=== PATIENT | female | born 1985 | race Two or more races ===

== ENCOUNTER 2016-10-21 14:24 | Emergency (ER) | payer OTHER ==
--- NOTE | 2016-10-21 14:29 | PDOC ---
Rapid Medical Evaluation Time Seen by Provider: 10/21/16 14:27 Medical Evaluation: Allergies Allergy/AdvReac Type Severity Reaction Status Date / Time No Known Drug Allergies Allergy Verified 11/02/15 18:35 10/21/16 14:27 31 year old female complaining of 2 days of headache, frontal and occipital, unrelieved by Tylenol. No history of migraines, no similar headaches. Denies fever, vomiting, difficulty walking. Had blurry vision last night. -UA, urine -Basic labs -To Main ED for further evaluation
[2016-10-21 14:31] VITALS: BMI 27.2
[2016-10-21 14:45] LABS: BASOPHIL 0.4 % (0-2.0); EOSINOPHIL 1.1 % (0-4.5); MCH 30.6 pg (25.7-33.7); MCHC 33.4 g/dl (32.0-36.0); MEAN CELL VOLUME 91.7 fl (80-96); MEAN PLT VOLUME 8.5 fl (7.5-11.1); NEUTROPHILS 71.2 % (42.8-82.8); PLATELET COUNT 295 K/MM3 (134-434); RDW 13.4 % (11.6-15.6); WHITE BLOOD COUNT 12.3 K/mm3 (4.0-10.0)
[2016-10-21 14:49] LABS: URINE APPEARANCE CLEAR; URINE BILIRUBIN NEGATIVE (NEGATIVE); URINE BLOOD NEGATIVE (NEGATIVE); URINE COLOR STRAW; URINE GLUCOSE (UA) NEGATIVE (NEGATIVE); URINE KETONE NEGATIVE (NEGATIVE); URINE LEUK ESTERASE NEGATIVE (NEGATIVE); URINE NITRITE NEGATIVE (NEGATIVE); URINE PROTEIN NEGATIVE (NEGATIVE); URINE UROBILINOGEN NEGATIVE E.U./dl (0.2-1.0)
[2016-10-21 15:11] LABS: ALBUMIN 3.1 g/dl (3.4-5.0); ALK PHOS 54 U/L (45-117); ANION GAP 11 (8-16); BILIRUBIN,TOTAL 0.2 mg/dL (0.2-1.0); CALCIUM 8.7 mg/dL (8.5-10.1); CO2 25 mmol/L (21-32); CREATININE 0.7 mg/dL (0.55-1.02); GLUCOSE,RANDOM 132 mg/dL (74-106); SGOT/AST 10 U/L (15-37); SGPT/ALT 16 U/L (12-78); TOT PROT 6.7 g/dl (6.4-8.2)
--- NOTE | 2016-10-21 15:39 | PDOC ---
History of Present Illness - General History Source: Patient Exam Limitations: No Limitations - History of Present Illness Initial Comments: 10/21/16 15:47 The patient is a 31 year old female who is currently 14 weeks , with no significant past medical history, who presents to the emergency department with a headache for the past 2 days. She describes her headache as moderate, without radiation. She notes that sound exacerbates her headache. She also notes that she has been taking Tylenol with little to no relief of her symptoms. The patient denies chest pain, shortness of breath and dizziness. Denies fever, chills, nausea, vomit, diarrhea and constipation. Denies dysuria, frequency, urgency and hematuria. LMP: 07/10/17 Allergies: None Past surgical history: None reported Social history: No alcohol, tobacco or drug use reported PMD - Dr. Harsha Tariq <Benedicto Hernandez - Last Filed: 10/21/16 15:45> <Killian Bedoya - Last Filed: 10/21/16 17:35> - General Chief Complaint: Headache Stated Complaint: Migraine Headache Time Seen by Provider: 10/21/16 14:27 Past History <Benedicto Hernandez - Last Filed: 10/21/16 15:45> - Past Medical History Anemia: No Asthma: No Cancer: No Cardiac Disorders: No CVA: No COPD: No CHF: No Dementia: No Diabetes: No GI Disorders: No Disorders: No HTN: No Hypercholesterolemia: No Liver Disease: No Seizures: No Thyroid Disease: No - Surgical History Abdominal Surgery: (tummy tuck) - Psycho/Social/Smoking Cessation Hx Anxiety: No Suicidal Ideation: No Smoking History: Never smoked Have you smoked in the past 12 months: No Information on smoking cessation initiated: No Hx Alcohol Use: No Drug/Substance Use Hx: No Substance Use Type: None Hx Substance Use Treatment: No <Killain Bedoya - Last Filed: 10/21/16 17:35> - Past Medical History Allergies/Adverse Reactions: Allergies Allergy/AdvReac Type Severity Reaction Status Date / Time No Known Drug Allergies Allergy Verified 10/21/16 14:28 Home Medications: Ambulatory Orders Acetaminophen [Tylenol .Regular Strength -] 650 mg PO Q4H PRN #0 tablet Review of Systems - Review of Systems Able to Perform ROS?: Yes Comments:: 10/21/16 15:46 GENERAL/CONSTITUTIONAL: No fever or chills. No weakness. HEAD, EYES, EARS, NOSE AND THROAT: No change in vision. No ear pain or discharge. No sore throat. CARDIOVASCULAR: No chest pain or shortness of breath RESPIRATORY: No cough, wheezing, or hemoptysis. GASTROINTESTINAL: No nausea, vomiting, diarrhea or constipation. GENITOURINARY: No dysuria, frequency, or change in urination. MUSCULOSKELETAL: No joint or muscle swelling or pain. No neck or back pain. SKIN: No rash NEUROLOGIC: +Headache. No vertigo, loss of consciousness, or change in strength/ sensation. ENDOCRINE: No increased thirst. No abnormal weight change HEMATOLOGIC/LYMPHATIC: No anemia, easy bleeding, or history of blood clots. ALLERGIC/IMMUNOLOGIC: No hives or skin allergy. <Benedicto Hernandez - Last Filed: 10/21/16 15:45> *Physical Exam - Vital Signs Last Vital Signs Temp Pulse Resp BP Pulse Ox 98.1 F 101 H 20 145/79 100 10/21/16 14:28 10/21/16 14:28 10/21/16 14:28 10/21/16 14:28 10/21/16 14:28 - Physical Exam Comments: 10/21/16 15:46 GENERAL: Awake, alert, and fully oriented, in no acute distress HEAD: No signs of trauma, normocephalic, atraumatic EYES: PERRLA, EOMI, sclera anicteric, conjunctiva clear ENT: Auricles normal inspection, hearing grossly normal, nares patent, oropharynx clear without exudates. Moist mucosa NECK: Normal ROM, supple, no lymphadenopathy, JVD, or masses LUNGS: No distress, speaks full sentences, clear to auscultation bilaterally HEART: Regular rate and rhythm, normal S1 and S2, no murmurs, rubs or gallops, peripheral pulses normal and equal bilaterally. ABDOMEN: Soft, nontender, normoactive bowel sounds. No guarding, no rebound. No masses EXTREMITIES: Normal inspection, Normal range of motion, no edema. No clubbing or cyanosis. NEUROLOGICAL: Cranial nerves II through XII grossly intact. Normal speech, normal gait, no focal sensorimotor deficits SKIN: Warm, Dry, normal turgor, no rashes or lesions noted. <Benedicto Hernandez - Last Filed: 10/21/16 15:45> - Vital Signs Last Vital Signs Temp Pulse Resp BP Pulse Ox 98.1 F 101 H 20 145/79 100 10/21/16 14:28 10/21/16 14:28 10/21/16 14:28 10/21/16 14:28 10/21/16 14:28 <Killian Bedoya - Last Filed: 10/21/16 17:35> ED Treatment Course - LABORATORY CBC & Chemistry Diagram: 10/21/16 14:40 10/21/16 14:40 - ADDITIONAL ORDERS Additional order review: Laboratory Results 10/21/16 10/21/16 14:40 14:40 Sodium 138 Potassium 3.8 Chloride 102 Carbon Dioxide 25 Anion Gap 11 BUN 6 L Creatinine 0.7 Creat Clearance w eGFR > 60 Random Glucose 132 H Calcium 8.7 Total Bilirubin 0.2 AST 10 L ALT 16 Alkaline Phosphatase 54 Total Protein 6.7 Albumin 3.1 L Urine Color Straw Urine Appearance Clear Urine pH 9.0 H D Ur Specific [place] 1.015 Urine Protein Negative Urine Glucose (UA) Negative Urine Ketones Negative Urine Blood Negative Urine Nitrite Negative Urine Bilirubin Negative Urine Urobilinogen Negative Ur Leukocyte Esterase Negative Urine HCG, Qual Positive 10/21/16 14:40 RBC 4.20 MCV 91.7 MCHC 33.4 RDW 13.4 MPV 8.5 D Neutrophils % 71.2 Lymphocytes % 22.3 Monocytes % 5.0 Eosinophils % 1.1 Basophils % 0.4 <Benedicto Hernandez - Last Filed: 10/21/16 15:45> - LABORATORY CBC & Chemistry Diagram: 10/21/16 14:40 10/21/16 14:40 - ADDITIONAL ORDERS Additional order review: Laboratory Results 10/21/16 10/21/16 14:40 14:40 Sodium 138 Potassium 3.8 Chloride 102 Carbon Dioxide 25 Anion Gap 11 BUN 6 L Creatinine 0.7 Creat Clearance w eGFR > 60 Random Glucose 132 H Calcium 8.7 Total Bilirubin 0.2 AST 10 L ALT 16 Alkaline Phosphatase 54 Total Protein 6.7 Albumin 3.1 L Urine Color Straw Urine Appearance Clear Urine pH 9.0 H D Ur Specific [place] 1.015 Urine Protein Negative Urine Glucose (UA) Negative Urine Ketones Negative Urine Blood Negative Urine Nitrite Negative Urine Bilirubin Negative Urine Urobilinogen Negative Ur Leukocyte Esterase Negative Urine HCG, Qual Positive 10/21/16 14:40 RBC 4.20 MCV 91.7 MCHC 33.4 RDW 13.4 MPV 8.5 D Neutrophils % 71.2 Lymphocytes % 22.3 Monocytes % 5.0 Eosinophils % 1.1 Basophils % 0.4 <Killian Bedoya - Last Filed: 10/21/16 17:35> *DC/Admit/Observation/Transfer - Attestations Scribe Attestion: 10/21/16 15:46 Documentation prepared by Benedicto Hernandez, acting as medical office technician for Killian Bedoya MD <Benedicto Hernandez - Last Filed: 10/21/16 15:45> - Attestations Physician Attestion: 10/21/16 15:40 I, Dr. Killian Bedoya, attest that this document has been prepared under my direction and personally reviewed by me in its entirety. I further attest, that it accurately reflects all work, treatment, procedures and medical decision -making performed by me. <Killian Bedoya - Last Filed: 10/21/16 17:35> Diagnosis at time of Disposition: Headache Qualifiers: Headache type: unspecified Headache chronicity pattern: acute headache - Discharge Dispostion Disposition: HOME Condition at time of disposition: Good - Referrals Referrals: Harsha Tariq [Primary Care Provider] - Byron Carpenter MD [Staff Physician] - - Patient Instructions Printed Discharge Instructions: DI for Headache Additional Instructions: Kevin- Please follow up with the neurologist. You need to see a specialist because there are very limited medicines you can have in . Use Tylenol for now. Best- Dr. Killian Bedoya
[2016-10-21] MEDS ORDERED: ONDANSETRON 4 MG/2 ML VIAL IVPUSH ONE (15:42)
[2016-10-21] MEDS ORDERED: morphine CARPU-JECT 4 MG/1 ML DISP.SYRIN IVPUSH ONE (15:42)
[2016-10-21] MEDS ORDERED: SODIUM CHLORIDE 1,000 ML IV STA (15:42)
[2016-10-21] MEDS ORDERED: METOCLOPRAMIDE HCL INJECTION 10 MG/2 ML VIAL IVPUSH ONE (15:42)
[2016-10-21] MEDS ORDERED: morphine CARPU-JECT 4 MG/1 ML DISP.SYRIN ONE (15:48)
[2016-10-21] MEDS ORDERED: ONDANSETRON 4 MG/2 ML VIAL ONE (15:48)
[2016-10-21] MEDS ORDERED: METOCLOPRAMIDE HCL INJECTION 10 MG/2 ML VIAL ONE (15:48)
[2016-10-21 17:13] VITALS: BP 104/60; PULSE 74; TEMP 98
== END 2016-10-21 17:45 | disposition home or self-care (01) ==
LOC: JER 14:24
PROC: 3E033GC Introduction of Other Therapeutic Substance into Peripheral Vein, Percutaneous Approach (ICD-10-PCS; principal; 2016-10-21)
PROC: 3E033NZ Introduction of Analgesics, Hypnotics, Sedatives into Peripheral Vein, Percutaneous Approach (ICD-10-PCS; 2016-10-21)
PROC: 3E0337Z Introduction of Electrolytic and Water Balance Substance into Peripheral Vein, Percutaneous Approach (ICD-10-PCS; 2016-10-21)
DX: O26.891 Other specified pregnancy related conditions, first trimester (principal); Z3A.14 14 weeks gestation of pregnancy; R51 Headache
CPT/HCPCS: 36415; 80053; 81003; 84703; 85025; 96361; 96374; 96375; 99282-25

== ENCOUNTER 2016-11-06 08:30 | Emergency (ER) | payer OTHER ==
[2016-11-06 08:45] VITALS: BP 139/85; PULSE 96; TEMP 98.6; BMI 28.8
[2016-11-06] MEDS ORDERED: ACETAMINOPHEN 500 MG TABLET (FP) PO ONE (09:28)
[2016-11-06] MEDS ORDERED: ACETAMINOPHEN 500 MG TABLET (FP) ONE (09:32)
--- NOTE | 2016-11-06 09:33 | PDOC ---
History of Present Illness - General Chief Complaint: Toothache Stated Complaint: SWOLLEN FACE, TOOTHACHE, 14 WKS Time Seen by Provider: 11/06/16 09:02 History Source: Patient Exam Limitations: No Limitations - History of Present Illness Initial Comments: 11/06/16 09:28 CHIEF COMPLAINT: left lower toothpain with swelling left side of face HISTORY OF PRESENT ILLNESS: 31 year old female here today complaining of worsening tooth pain left lower posterior molar over the last 3 days patient reports that left side of her face is slightly swollen pain radiates to her left ear. Patient last took in a fence 650 mg yesterday. Patient denies any fever. He is a 8 out of 10. 11/06/16 09:33 Timing/Duration: getting worse (over 3 days ) Severity: severe Associated Symptoms: reports: denies symptoms Past History - Past Medical History Allergies/Adverse Reactions: Allergies Allergy/AdvReac Type Severity Reaction Status Date / Time No Known Drug Allergies Allergy Verified 11/06/16 08:47 Home Medications: Ambulatory Orders Acetaminophen [Tylenol .Regular Strength -] 650 mg PO Q4H PRN #0 tablet Penicillin V Potassium [Pen Vee K -] 500 mg PO Q6H #28 tablet 11/06/16 Anemia: No Asthma: No Cancer: No Cardiac Disorders: No CVA: No COPD: No CHF: No Dementia: No Diabetes: No GI Disorders: No Disorders: No HTN: No Hypercholesterolemia: No Liver Disease: No Seizures: No Thyroid Disease: No Other medical history: PT DENIES MEDICAL HX - Surgical History Abdominal Surgery: Yes (tummy tuck) - Reproductive History (#): 3 Para: 2 Cervical CA: No Dysfunctional Uterine Bleeding: No Ectopic : No Endometrial CA: No Polycystic Ovaries: No Therapeutic (s) & number: No Tubal Ligation: No - Psycho/Social/Smoking Cessation Hx Anxiety: No Suicidal Ideation: No Smoking History: Never smoked Have you smoked in the past 12 months: No Hx Alcohol Use: No Drug/Substance Use Hx: No Substance Use Type: None Hx Substance Use Treatment: No Review of Systems - Review of Systems Able to Perform ROS?: Yes Constitutional: No: Symptoms Reported HEENTM: Yes: Ear Pain (left ), Dental Problems (left posterior molar pain) Respiratory: No: Symptoms reported Cardiac (ROS): No: Symptoms Reported ABD/GI: No: Symptoms Reported : No: Symptoms Reported Musculoskeletal: No: Symptoms Reported Integumentary: Yes: Other (left side of face slightly edematou s) *Physical Exam - Vital Signs Last Vital Signs Temp Pulse Resp BP Pulse Ox 98.6 F 96 H 18 139/85 97 11/06/16 08:43 11/06/16 08:43 11/06/16 08:43 11/06/16 08:43 11/06/16 08:43 - Physical Exam General Appearance: Yes: Appropriately Dressed HEENT: positive: TMs Normal (b/l ), Other (left lower posterior molar partially erupted with surrounding edema of gum/tender ). negative: Pharyngeal Erythema, Tonsillar Exudate, Tonsillar Erythema Neck: positive: Lymphadenopathy (L). negative: Lymphadenopathy (R) Respiratory/Chest: positive: Lungs Clear, Normal Breath Sounds. negative: Chest Tender, Respiratory Distress Cardiovascular: positive: Regular Rhythm, Regular Rate, S1, S2 Integumentary: positive: Other (left side of lower face slightly edematous ) Medical Decision Making - Medical Decision Making 11/06/16 09:33 11/06/16 09:33 31 year old female here today complaining of worsening tooth pain left lower posterior molar over the last 3 days patient reports that left side of her face is slightly swollen pain radiates to her left ear. Patient last took in a fence 650 mg yesterday. Patient denies any fever. He is a 8 out of 10. left posterior lower molar partially erupted with surrounding gum edema PLAN: Acetaminophen 1000 mg by mouth now pen vk 500 mg q 6 hr for 7 days follow up with dentist *DC/Admit/Observation/Transfer Diagnosis at time of Disposition: Atypical toothache, Impacted tooth - Discharge Dispostion Disposition: HOME Condition at time of disposition: Stable - Prescriptions Prescriptions: Penicillin V Potassium [Pen Vee K -] 500 mg PO Q6H #28 tablet - Referrals Referrals: Harsha Tariq [Primary Care Provider] - - Patient Instructions Printed Discharge Instructions: DI for Impacted Tooth Additional Instructions: Follow-up with dentist today Take acetaminophen as needed as directed by solidworks designer for pain Return if symptoms worsen Patient voiced understanding of discharge instructions and all questions were answered.
== END 2016-11-06 09:48 | disposition home or self-care (01) ==
LOC: JERFT 08:30
DX: K01.1 Impacted teeth (principal); Z3A.14 14 weeks gestation of pregnancy
CPT/HCPCS: 99281-25

== ENCOUNTER 2017-01-24 22:36 | Emergency (ER) | payer OTHER ==
[2017-01-24 22:40] VITALS: BMI 29.7
[2017-01-24 23:43] LABS: URINE APPEARANCE SLCLOUDY; URINE BILIRUBIN NEGATIVE (NEGATIVE); URINE COLOR STRAW; URINE GLUCOSE (UA) NEGATIVE (NEGATIVE); URINE KETONE NEGATIVE (NEGATIVE); URINE NITRITE NEGATIVE (NEGATIVE); URINE UROBILINOGEN NEGATIVE E.U./dl (0.2-1.0)
[2017-01-24 23:45] VITALS: BP 126/79; PULSE 95; TEMP 98.3
[2017-01-24 23:45] LABS: URINE BLOOD 2+ (NEGATIVE); URINE LEUK ESTERASE 3+ (NEGATIVE); URINE PROTEIN 1+ (NEGATIVE)
[2017-01-24] MEDS ORDERED: DEXTROSE 5%-LACTATED RINGERS 1,000 ML IV SCH (23:45)
[2017-01-24 23:47] LABS: URINE BACTERIA RARE /hpf (NONE SEEN); URINE MUCUS RARE; URINE RBC 3 /hpf (0-3); URINE WBC 432 /hpf (3-5)
[2017-01-25] MEDS ORDERED: CEFAZOLIN 2 GM/D5W 50 ML IVPB ONE (00:15)
[2017-01-25] MEDS ORDERED: ACETAMINOPHEN 325 MG TABLET (FP) PO ONE (00:30)
== END 2017-01-25 01:31 | disposition home or self-care (01) ==
LOC: JER 22:36
DX: O26.892 Other specified pregnancy related conditions, second trimester (principal); R10.30 Lower abdominal pain, unspecified; Z3A.24 24 weeks gestation of pregnancy
CPT/HCPCS: 76816-TC; 76817-TC; 81003; 81015; 87086; 87186; 99281-25

== ENCOUNTER 2017-05-11 01:30 | Inpatient (IN) | payer OTHER ==
[~2017-05-11 01:30] MED LIST: CITRIC ACID/SODIUM CITRATE 30 ML UNIT-DOSE CUP PO ONE; ELECTROLYTE-148 SOLN 500 ML IV ONE
[2017-05-11] MEDS ORDERED: ELECTROLYTE-148 SOLN 1,000 ML IV SCH (02:00)
[2017-05-11 02:06] LABS: BASOPHIL 0.6 % (0-2.0); EOSINOPHIL 0.8 % (0-4.5); MCH 30.7 pg (25.7-33.7); MCHC 33.3 g/dl (32.0-36.0); MEAN CELL VOLUME 92.2 fl (80-96); MEAN PLT VOLUME 10.3 fl (7.5-11.1); NEUTROPHILS 63.2 % (42.8-82.8); PLATELET COUNT 214 K/MM3 (134-434); RDW 13.9 % (11.6-15.6); WHITE BLOOD COUNT 13.1 K/mm3 (4.0-10.0)
[2017-05-11 02:08] VITALS: BMI 31.1
[2017-05-11 02:32] LABS: ACTIVATED PTT 25.5 SECONDS (26.9-34.4)
[2017-05-11 02:35] LABS: ANION GAP 12 (8-16); CALCIUM 9.4 mg/dL (8.5-10.1); CO2 21 mmol/L (21-32); CREATININE 0.5 mg/dL (0.55-1.02); GLUCOSE,RANDOM 87 mg/dL (74-106)
[2017-05-11 03:04] LABS: HIV 1 & 2 AB NEGATIVE; HIV 1 AGp24 NEGATIVE
[2017-05-11] MEDS ORDERED: ONDANSETRON 4 MG/2 ML VIAL IVPB PRN (06:13)
[2017-05-11] MEDS ORDERED: ELECTROLYTE-148 SOLN 500 ML IV ONE (06:24)
--- NOTE | 2017-05-11 06:34 | HP ---
Past Medical History - Admission Chief Complaint: Labor pain History of Present Illness: 32 yo @ 37.6 weeks gestation, EDC 05/27/17, presents c/o labor pain. She had 2 previous followed by abdominoplasty. History Source: Patient Limitations to Obtaining History: No Limitations - Past Medical History ...: 3 ...Para: 2 ...Term: 2 ...: 0 ...Spon : 0 ...Induced : 0 ...Multiple Gestation: 0 ...EDC by [facility]: 05/27/17 - Past Surgical History Past Surgical History: Yes: Hx Myomectomy: No Hx Transabdominal Cerclage: No - Smoking History Smoking history: Never smoked Have you smoked in the past 12 months: No - Alcohol/Substance Use Hx Alcohol Use: No History of Substance Use: reports: None - Social History Usual Living Arrangement: Yes: With Spouse History of Recent Travel: No Home Medications - Allergies Allergies/Adverse Reactions: Allergies Allergy/AdvReac Type Severity Reaction Status Date / Time No Known Drug Allergies Allergy Verified 01/24/17 22:37 - Home Medications Home Medications: Ambulatory Orders Vit/Iron Fumarate/FA [ Tablet] 1 tablet PO DAILY 05/11/17 Family Disease History - Family Disease History Family History: Unremarkable Review of Systems - Review of Systems Constitutional: reports: No Symptoms Eyes: reports: No Symptoms HENT: reports: No Symptoms Neck: reports: No Symptoms Cardiovascular: reports: No Symptoms Respiratory: reports: No Symptoms Gastrointestinal: reports: No Symptoms Genitourinary: reports: Pain Breasts: reports: No Symptoms Reported Musculoskeletal: reports: No Symptoms Integumentary: reports: No Symptoms Neurological: reports: No Symptoms Endocrine: reports: No Symptoms Hematology/Lymphatic: reports: No Symptoms Psychiatric: reports: No Symptoms Pain Intensity: 8 Physical Exam - Maternity Vital Signs: Vital Signs Temperature 98.4 F 05/11/17 04:00 Pulse Rate 82 05/11/17 04:00 Respiratory Rate 18 05/11/17 04:00 Blood Pressure 131/71 05/11/17 04:00 O2 Sat by Pulse Oximetry (%) Constitutional: Yes: Well Nourished Eyes: Yes: Conjunctiva Clear HENT: Yes: Atraumatic Neck: Yes: Supple Cardiovascular: Yes: Regular Rate and Rhythm Lungs: Clear to auscultation - Abdominal Exam/OB Number of Fetuses: Single Presentation: Vertex - Vaginal Exam/OB Vaginal Bleediing: No Dilatation (cm): 1 Effacement (%): 80 Amniotic Membrane Status: Intact Station: -2 - Physical Exam Musculoskeletal: Yes: WNL Extremities: Yes: WNL ...Motor Strength: WNL Psychiatric: Yes: Alert, Oriented - Labs Lab Results: CBC, BMP 05/11/17 01:54 05/11/17 01:50 Problem List - Problems (1) Status post repeat low transverse section Code(s): Z98.891 - HISTORY OF UTERINE SCAR FROM PREVIOUS SURGERY Assessment/Plan Previous in labor Admit to L&D Pre op for repeat Consent signed Anesthesia to see patient
--- NOTE | 2017-05-11 06:41 | OP ---
Operative Note - Note: Operative Date: 05/11/17 Pre-Operative Diagnosis: Previous in labor Operation: Repeat Low Transverse Findings: Baby boy in LOT position Post-Operative Diagnosis: Same as Pre-op Surgeon: Mariam Arciniega Baseball Inspector And Repairer: Adalberto Arredondo Anesthesia: Spinal Specimens Removed: Placenta Estimated Blood Loss (mls): 500
[2017-05-11] MEDS ORDERED: oxyCODONE HCL 5 MG TABLET PO PRN (06:58)
[2017-05-11] MEDS ORDERED: METHYLERGONOVINE MALEATE 0.2 MG/1 ML AMP IM PRN (06:58)
[2017-05-11] MEDS ORDERED: D5W-LR W/ 20 UNITS OXYTOCIN 1,000 ML IV SCH (07:00)
[2017-05-11] MEDS: OXYTOCIN 20 UNITS in 0.9% NS 1,000 ML IV SCH ×2 (08:00→15:39)
[2017-05-11] MEDS: PRENATAL VITAMINS W/ FOLIC ACID TABLET (FP) PO SCH (09:27)
[2017-05-11] MEDS: FERROUS SO4 325 MG TABLET (FP) PO SCH ×2 (09:27→22:11)
[2017-05-11] MEDS: IBUPROFEN 800 MG/8 ML IJ IVPB PRN (21:16)
[2017-05-12] MEDS: IBUPROFEN 800 MG/8 ML IJ IVPB PRN (06:26)
[2017-05-12] MEDS ORDERED: BISACODYL 10 MG SUPP.RECT RC PRN (06:58)
[2017-05-12 08:06] LABS: BASOPHIL 0.5 % (0-2.0); EOSINOPHIL 0.7 % (0-4.5); MCH 30.7 pg (25.7-33.7); MCHC 32.9 g/dl (32.0-36.0); MEAN CELL VOLUME 93.5 fl (80-96); MEAN PLT VOLUME 9.3 fl (7.5-11.1); PLATELET COUNT 202 K/MM3 (134-434); RDW 14.2 % (11.6-15.6); WHITE BLOOD COUNT 13.3 K/mm3 (4.0-10.0)
--- NOTE | 2017-05-12 08:42 | PN ---
Progress Note (short form) - Note Progress Note: Post op day#1.S/P C Section under spinal anesthesia with duramorph uneventful.Patient stable has little pain for which she is on medication.No any anesthesia related problem.Patient DC from the anesthesia care.
--- NOTE | 2017-05-12 09:54 | PN ---
Post Progress Note - Subjective Subjective: 32 yo status post repeat , seen and evaluated. Doing well. Post Day: 1 Type of Delivery: Repeat C/S Vital Signs: Vital Signs Temperature 97.6 F 05/12/17 05:16 Pulse Rate 74 05/12/17 05:16 Respiratory Rate 20 05/12/17 06:00 Blood Pressure 124/77 05/12/17 05:16 O2 Sat by Pulse Oximetry (%) 100 05/11/17 07:30 Breast Exam: Yes: Soft Uterus: Yes: Fundus Firm Incision: Yes: Dressing dry and intact Abdomen/GI: Yes: Abdomen soft, Tolerating PO Lochia: Yes: Rubra Lochia, amount: Small Perineum: Yes: Intact Activity: Ambulating - Labs Labs: CBC WBC 13.3 K/mm3 (4.0-10.0) H 05/12/17 07:35 RBC 4.18 M/mm3 (3.60-5.2) 05/12/17 07:35 Hgb 12.9 GM/dL (10.7-15.3) 05/12/17 07:35 Hct 39.1 % (32.4-45.2) 05/12/17 07:35 MCV 93.5 fl (80-96) 05/12/17 07:35 MCH 30.7 pg (25.7-33.7) 05/12/17 07:35 MCHC 32.9 g/dl (32.0-36.0) 05/12/17 07:35 RDW 14.2 % (11.6-15.6) 05/12/17 07:35 Plt Count 202 K/MM3 (134-434) 05/12/17 07:35 MPV 9.3 fl (7.5-11.1) 05/12/17 07:35 Neutrophils % 70.0 % (42.8-82.8) 05/12/17 07:35 Lymphocytes % 21.0 % (8-40) D 05/12/17 07:35 Monocytes % 7.8 % (3.8-10.2) 05/12/17 07:35 Eosinophils % 0.7 % (0-4.5) 05/12/17 07:35 Basophils % 0.5 % (0-2.0) 05/12/17 07:35 Problem List - Problems (1) Status post repeat low transverse section Code(s): Z98.891 - HISTORY OF UTERINE SCAR FROM PREVIOUS SURGERY Assessment/Plan Status post repeat Stable Ambulation Analgesia as needed Continue routine post op care
[2017-05-12] MEDS ORDERED: DIPHTH,PERTUSS(ACELL),TET 0.5 ML DISP.SYRIN IM ONE (10:00)
[2017-05-12] MEDS: FERROUS SO4 325 MG TABLET (FP) PO SCH ×2 (10:00→21:23)
[2017-05-12] MEDS: PRENATAL VITAMINS W/ FOLIC ACID TABLET (FP) PO SCH (10:00)
[2017-05-12] MEDS: SIMETHICONE 80 MG TAB.CHEW (FP) PO PRN (21:23)
[2017-05-12] MEDS: IBUPROFEN 600 MG TABLET (FP) PO PRN (21:23)
[2017-05-12] MEDS ORDERED: ACETAMINOPHEN 325 MG TABLET (FP) PO PRN (21:46)
--- NOTE | 2017-05-13 07:23 | PN ---
Post Progress Note Post Day: 2 Type of Delivery: Repeat C/S Vital Signs: Vital Signs Temperature 100.0 F H 05/12/17 22:00 Pulse Rate 81 05/12/17 22:00 Respiratory Rate 20 05/12/17 22:00 Blood Pressure 126/74 05/12/17 22:00 O2 Sat by Pulse Oximetry (%) 100 05/11/17 07:30 Breast Exam: Yes: Soft Uterus: Yes: Fundus Firm Incision: Yes: Dressing dry and intact Abdomen/GI: Yes: Abdomen soft Lochia: Yes: Rubra Lochia, amount: Small Extremities: Yes: Calves non-tender Perineum: Yes: Intact Activity: Ambulating - Labs Labs: CBC WBC 13.3 K/mm3 (4.0-10.0) H 05/12/17 07:35 RBC 4.18 M/mm3 (3.60-5.2) 05/12/17 07:35 Hgb 12.9 GM/dL (10.7-15.3) 05/12/17 07:35 Hct 39.1 % (32.4-45.2) 05/12/17 07:35 MCV 93.5 fl (80-96) 05/12/17 07:35 MCH 30.7 pg (25.7-33.7) 05/12/17 07:35 MCHC 32.9 g/dl (32.0-36.0) 05/12/17 07:35 RDW 14.2 % (11.6-15.6) 05/12/17 07:35 Plt Count 202 K/MM3 (134-434) 05/12/17 07:35 MPV 9.3 fl (7.5-11.1) 05/12/17 07:35 Neutrophils % 70.0 % (42.8-82.8) 05/12/17 07:35 Lymphocytes % 21.0 % (8-40) D 05/12/17 07:35 Monocytes % 7.8 % (3.8-10.2) 05/12/17 07:35 Eosinophils % 0.7 % (0-4.5) 05/12/17 07:35 Basophils % 0.5 % (0-2.0) 05/12/17 07:35 Assessment/Plan as above oob reg diet
[2017-05-13] MEDS: PRENATAL VITAMINS W/ FOLIC ACID TABLET (FP) PO SCH (09:20)
[2017-05-13] MEDS: FERROUS SO4 325 MG TABLET (FP) PO SCH ×2 (09:20→21:35)
--- NOTE | 2017-05-13 13:25 | PATH ---
Surgical Pathology Report Patient Name: SULTANA MANCILLA Med. Rec. #: [id number] /Age/Gender: 1985 (Age: 32) / F Account: [id number] Location: [facility] OBS/ANALYST PROGRAMMER Taken: 05/11/2017 Received: 05/11/2017 Reported: 05/13/2017 Physicians: Mariam Arciniega M.D. Specimen(s) Received PLACENTA Clinical History , 37.6 weeks previous x2 GDM-diet controlled Repeat in labor Final Diagnosis PLACENTA, DELIVERY: FOCALLY DISRUPTED THIRD TRIMESTER PLACENTA WITH THREE VESSEL UMBILICAL CORD AND UNREMARKABLE PLACENTAL MEMBRANES. Electronically Signed Harsha Garcia M.D. Gross Description The specimen is received fresh labeled placenta and is a 326 gram, 15.0 x 15.0 x 2.0 cm. placenta with attached membranes and umbilical cord. The attached membranes are ivey, translucent with focal opacities and insert marginally. The umbilical cord measures 55 cm. in length and averages 1 cm. in diameter. The cord inserts eccentrically, 4 cm. to the nearest margin. No true knots or strictures are identified. Cut surface of the umbilical cord reveals 3 vessels. The surface is meyers-blue with minimal fibrin deposition and appropriate caliber vessels. The maternal surface is red-brown with focal defects. Sectioning reveals red-brown, spongy parenchyma. No lesions are identified. Medical Reviewer sections are submitted in three cassettes as follows: 1- membrane rolls and umbilical cord; 2-3- full thickness sections of placenta. 05/12/2017 saudi05/12/2017
[2017-05-13] MEDS: IBUPROFEN 600 MG TABLET (FP) PO PRN (21:35)
[2017-05-13] MEDS: SIMETHICONE 80 MG TAB.CHEW (FP) PO PRN (21:36)
[2017-05-14 08:29] LABS: BASOPHIL 0.5 % (0-2.0); EOSINOPHIL 2.1 % (0-4.5); MCH 31.3 pg (25.7-33.7); MCHC 33.3 g/dl (32.0-36.0); MEAN CELL VOLUME 93.8 fl (80-96); MEAN PLT VOLUME 8.9 fl (7.5-11.1); NEUTROPHILS 55.9 % (42.8-82.8); PLATELET COUNT 248 K/MM3 (134-434); RDW 14.3 % (11.6-15.6); WHITE BLOOD COUNT 9.8 K/mm3 (4.0-10.0)
[2017-05-14 08:47] VITALS: BP 122/72; PULSE 56; TEMP 98.1
[2017-05-14] MEDS: FERROUS SO4 325 MG TABLET (FP) PO SCH (08:59)
[2017-05-14] MEDS: PRENATAL VITAMINS W/ FOLIC ACID TABLET (FP) PO SCH (08:59)
--- NOTE | 2017-05-14 13:20 | DS ---
Physical Exam-CHIEF TECHNICIAN X RAY Vital Signs: Vital Signs Temperature 98.1 F 05/14/17 07:20 Pulse Rate 56 L 05/14/17 07:20 Respiratory Rate 20 05/14/17 07:20 Blood Pressure 122/72 05/14/17 07:20 O2 Sat by Pulse Oximetry (%) 100 05/11/17 07:30 Constitutional: Yes: Well Nourished Eyes: Yes: Conjunctiva Clear HENT: Yes: Atraumatic Neck: Yes: Supple Cardiovascular: Yes: Regular Rate and Rhythm Respiratory: Yes: Regular, CTA Bilaterally Gastrointestinal: Yes: Normal Bowel Sounds Vaginal Exam: Yes: Normal Cervix: Yes: Normal Musculoskeletal: Yes: WNL Neurological: Yes: Alert, Oriented ...Motor Strength: WNL Psychiatric: Yes: Alert, Oriented Labs: CBC, BMP 05/14/17 07:35 05/11/17 01:50 Delivery - Delivery Type of Anesthesia: Spinal Episiotomy/Laceration: None EBL (cc): 500 Delivery, Single - Stages of Labor Date 1st Stage Initiatied: 05/11/17 Time 1st Stage Initiated: 00:00 Date of Delivery: 05/11/17 Time of Delivery: 05:57 Time Placenta Delivered: 05:58 - Condition of Infant Collection Systems Administrator/Despatch Clerk Present: Yes Name: Joie Woodward Infant Gender: Male Weight: 6 lb Position: Left, OT Total Hours ROM (Hrs/Mins): 1min - 1 Minute Total Score: 9 5 Minutes Total Score: 9 - [place] Feeding Plan Initial Plan: Elected not to breastfeed exclusively throughout hospitalization Discharge Summary Reason For Visit: LABOR ADMIT REPEAT C/SECTION Current Active Problems Status post repeat low transverse section (Acute) Procedures: Principal: Hospital Course: Routine Post op care Condition: Good - Instructions - Home Medications Comprehensive Discharge Medication List: Ambulatory Orders Vit/Iron Fumarate/FA [ Tablet] 1 tablet PO DAILY 05/11/17
== END 2017-05-14 15:25 | disposition home or self-care (01) | DRG 540 ==
LOC: JLDR 01:30 → J3W 08:23
PROVIDERS: ADMIT Obstetrics & Gynecology; ATTEND Obstetrics & Gynecology
PROC: 10D00Z1 Extraction of Products of Conception, Low, Open Approach (ICD-10-PCS; principal; 2017-05-11)
DX: O34.211 Maternal care for low transverse scar from previous cesarean delivery (principal); N85.8 Other specified noninflammatory disorders of uterus; O24.410 Gestational diabetes mellitus in pregnancy, diet controlled; Z3A.37 37 weeks gestation of pregnancy; Z37.0 Single live birth
CPT/HCPCS: 36415; 80048; 85025; 85610; 85730; 86593; 86850; 86900; 86901; 87389; 88307-TC; 90715